=== PATIENT | male | born 2000 | race Caucasian/White ===

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

== ENCOUNTER 2021-05-22 23:39 | Emergency (ER) | payer MEDICAID ==
[~2021-05-22 23:39] MED LIST: QUET100T4 PO
--- NOTE | 2021-05-22 23:47 | NUR ---
PT NOT IN LOBBY WHEN CALLED
--- NOTE | 2021-05-22 23:56 | NUR ---
NOT IN LOBBY WHEN CALLED
--- NOTE | 2021-05-23 00:37 | NUR ---
NOT IN LOBBY
== END 2021-05-23 00:39 | disposition left against medical advice (07) ==
LOC: ED 23:51
DX: K08.89 Other specified disorders of teeth and supporting structures (principal); Z53.21 Procedure and treatment not carried out due to patient leaving prior to being seen by health care provider